=== PATIENT | female | born 1955 | race African-American/Black ===

== ENCOUNTER 2016-11-14 20:16 | Emergency (ER) | payer MEDICARE, OTHER ==
[~2016-11-14] VITALS: Ht 152.4 cm; Wt 78.5 kg
--- NOTE | ~2016-11-14 | CT4 ---
[facility] A Service [facility] RADIOLOGY TEXT RESULTS PATIENT: ALTA BERTRAND LOCATION: [place] : 53 UNIT #: [id number] AGE: [address]: JOSE DOE APRN SEX: F ORDER DR: [id number] [facility]. [place], [place] [address] [id number] MR#: [id number] Acc #: [id number] NAME: ALTA BERTRAND : 1955 SEX: F STUDY DATE/TIME: 11/14/2016 22:58 UNIT: [id number] ROOM: STUDY DESCRIPTION: CT Abd and Pelv Wo Cont Attending Physician: Jose Doe Aprn Ordering Physician: Jose Doe Aprn Primary Care Physician: Parviz Fierro Jr., M.D. MEDICAL IMAGING REPORT This report is preliminary unless electronic signature is present EXAM CT abdomen and pelvis without contrast INDICATION Pelvic pain for the past week. PROCEDURE Unenhanced CT of the abdomen and pelvis. This CT exam was performed with one or more of the following radiation dose reduction techniques: Automatic exposure control, adjustment of mA and/or kV according to patient size, and iterative reconstruction. COMPARISON 10/23/2012 FINDINGS ABDOMEN WITHOUT CONTRAST: Included lung bases are clear. The liver, spleen, kidneys, adrenal glands, pancreas, and gallbladder are unremarkable. The bowel loops are nondilated. There are uncomplicated colonic diverticula. PELVIS WITHOUT CONTRAST: No pelvic mass or fluid. Previous hysterectomy. Multiple phleboliths in the pelvis. No aggressive appearing bone lesion. IMPRESSION 1. No clearly acute finding in the abdomen or pelvis. 2. Uncomplicated colonic diverticulosis. Dictated by... Anatoly Alejandro M.D. [facility] A Service of [facility] RADIOLOGY TEXT RESULTS PATIENT: ALTA BERTRAND LOCATION: [place] : 53 UNIT #: [id number] AGE: [address]: JOSE DOE APRN SEX: F ORDER DR: THIS IS AN ELECTRONICALLY VERIFIED REPORT Anatoly E. Flavia, M.D. at 11/16/2016 10:00 PM IVANA/oma TD: 11/15/2016 11:38 JOB #: [id number] MEDICAL IMAGING REPORT Page 1 of 1 COPY
[~2016-11-14 20:16] MED LIST: ALAVERT10 MG PO; ALBUTEROL17 G1 IH; AMITRYPTYLINE PO; ANUSOL-HC21 GM PR; CELEBREX PO; DYAZIDE 37.5/251 CAP PO; EXCEDRIN EXTRA1 EAC1 PO; FLAGYL PO; FLEXERIL10 MG PO; HYDROCODON-ACE1 EAC1 PO; IMITREX PO; LEVAQUIN750 MG PO; LIPITOR PO; LIPITOR20 MG PO; LISINOPRIL PO; LISINOPRIL10 MG PO; LISINOPRIL20 MG PO; LOPRESSOR PO; LORTAB 7.5-5001 TAB PO; LORTAB 7.51 TAB 7.5/ DOB; MAXZIDE 75/50 T1 TAB PO; MAXZIDE-25 MG1 UDTAB PO; MEDROL4 MG/DOSE- PO; METOPROLOL; METOPROLOL TAR100 MG PO; NITROGLYCERIN0.4 MG SL; NORCO 5/325 TAB1 TAB PO; PRILOSEC PO; PRILOSEC20 MG PO; RELPAX40 MG PO; TRIAMTERENE-HC1 EAC1 PO
[2016-11-14 22:11] LABS: URINE APPEARANCE CLEAR; URINE BILIRUBIN NEG (NEG); URINE BLOOD NEG (NEG); URINE COLOR YELLOW; URINE GLUCOSE 250 MG/DL (NEG); URINE KETONE NEG (NEG); URINE LEUKOCYTE ESTERASE NEG (NEG); URINE NITRATE NEG (NEG); URINE PROTEIN NEG (NEG); URINE UROBILINOGEN 0.2 MG/DL (NEG)
[2016-11-14 22:15] LABS: CULTURE INDICATED? NO
[2016-11-17 07:41] LABS: CHLAMYDIA TRACH Not Detected (Not Detected); N GONOR Not Detected (Not Detected)
== END 2016-11-15 00:03 | disposition home or self-care (01) ==
LOC: CED 20:16 → CFTX 21:54 → CED 21:54
PROVIDERS: Nurse Practitioner Family
DX: R10.2 Pelvic and perineal pain (principal); E11.9 Type 2 diabetes mellitus without complications; I11.0 Hypertensive heart disease with heart failure; I50.9 Heart failure, unspecified; J44.9 Chronic obstructive pulmonary disease, unspecified; F17.200 Nicotine dependence, unspecified, uncomplicated; Z79.899 Other long term (current) drug therapy; Z79.82 Long term (current) use of aspirin; Z98.890 Other specified postprocedural states
CPT/HCPCS: 74176; 81003; 82947; 87491; 87591; 87808; 87905; 99284